=== PATIENT | female | born 1930 | race Caucasian/White ===

== ENCOUNTER 2016-09-19 21:41 | Observation (INO) | payer MEDICARE, OTHER ==
[~2016-09-19] VITALS: Ht 162.6 cm; Wt 61.0 kg
[2016-09-19 21:42] VITALS: BP 205/106; PULSE 92; RESP 14; TEMP 97.8; O2SAT 97
[2016-09-19] MEDS ORDERED: TETANUS/DIPHTHERIA TOXOID ADULT 0.5 ML VIAL IM ONE (23:15)
[2016-09-19] MEDS ORDERED: COUM5TAB PO (23:21)
--- NOTE | 2016-09-19 23:29 | PD ---
HPI Chief Complaint: Fall Time Seen by Provider: 23:03 Travel History International Travel<30 days: No Contact w/Intl Traveler<30days: No Traveled to known affect area: No History of Present Illness HPI The patient is a 85-year-old female who presents to the emergency department after a fall. The patient states she was leaving a concert [place] earlier tonight when her missed a step and tripped and fell. The patient states that her fell on top of her and she subsequently struck her head. The patient denies any loss of consciousness but does complain of a hematoma over the right forehead. The patient is currently on Coumadin secondary to atrial fibrillation. The patient also complains of a small bruise over the anterior aspect the left knee, but is able to bear weight on the affected leg. She also complains of pain over the right great toe and thinks her right great toe may be fractured. The patient denies any neck pain, chest pain, shortness breath, but does note mild nausea. She denies any vomiting or abdominal pain. PFSH Past Medical History Hx Anticoagulant Therapy: Yes (COUMADIN) Atrial Fibrillation: Yes Cardiovascular Problems: Yes (A FIB) Tetanus Vaccination: Unknown Influenza Vaccination: Yes Past Surgical History Appendectomy: Yes Hysterectomy: Yes Social History Alcohol Use: Yes Tobacco Use: No Substance Use: No Allergies-Medications (Allergen,Severity, Reaction): Coded Allergies: No Known Allergies (Unverified , 09/19/16) Reported Meds & Prescriptions Reported Meds & Active Scripts Active Reported Coumadin (Warfarin) 5 Mg Tab 5 Mg PO DAILY Review of Systems Except as stated in HPI: all other systems reviewed are Neg Eyes: No: Blurred Vision HENT: Positive: Headaches, No: Neck Pain Cardiovascular: Positive: Irregular Rhythm, No: Chest Pain or Discomfort Respiratory: No: Shortness of Breath Gastrointestinal: Positive: Nausea, No: Vomiting, Abdominal Pain Musculoskeletal: Positive: Pain Neurologic: Positive: Headache, No: Dizziness, Change in Mentation, Slurred Speech, Paresthesia, Sensory Disturbance Physical Exam Narrative GENERAL: Awake, alert, pleasant 85-year-old female who appears her stated age and is in no acute respiratory distress. SKIN: Focused skin assessment warm/dry. Hematoma to the right frontal parietal area with superficial abrasion noted. HEAD: Hematoma the right frontal temporal parietal area with abrasion noted. EYES: Pupils equal and round. Pupils are 3 mm bilateral and reactive. ENT: No nasal bleeding or discharge. Mucous membranes pink and moist. NECK: Trachea midline. No JVD. CARDIOVASCULAR: Irregularly irregular. RESPIRATORY: No accessory muscle use. Clear to auscultation. Breath sounds equal bilaterally. GASTROINTESTINAL: Abdomen soft, non-tender, nondistended. No rebound tenderness. MUSCULOSKELETAL: No obvious deformities. No clubbing. No cyanosis. No edema. NEUROLOGICAL: Awake and alert. No obvious cranial nerve deficits. Motor grossly within normal limits. Normal speech. Nonfocal. Oriented 4. Follows commands without difficulty. PSYCHIATRIC: Appropriate mood and affect; insight and judgment normal. Data Data Last Documented VS Vital Signs Date Time Temp Pulse Resp B/P Pulse Ox O2 Delivery O2 Flow Rate FiO2 09/19/16 21:42 97.8 92 14 205/106 97 Room Air Orders Tetanus/Diphtheria Tox Adult (Tetanus/Di (09/19/16 23:15) Ct Brain W/O Iv Contrast(Rout) (09/19/16 ) Toe (Min 2vws) (09/19/16 ) Prothrombin Time / Inr (Pt) (09/19/16 23:03) Complete Blood Count With Diff (09/19/16 23:03) Ondansetron Odt (Zofran Odt) (09/19/16 23:30) Labs Laboratory Tests Test 09/19/16 23:35 White Blood Count 8.2 TH/MM3 Red Blood Count 4.05 MIL/MM3 Hemoglobin 13.1 GM/DL Hematocrit 39.7 % Mean Corpuscular Volume 98.0 FL Mean Corpuscular Hemoglobin 32.4 PG Mean Corpuscular Hemoglobin 33.1 % Concent Red Cell Distribution Width 15.4 % Platelet Count 177 TH/MM3 Mean Platelet Volume 9.3 FL Neutrophils (%) (Auto) 72.8 % Lymphocytes (%) (Auto) 17.9 % Monocytes (%) (Auto) 7.4 % Eosinophils (%) (Auto) 1.2 % Basophils (%) (Auto) 0.7 % Neutrophils # (Auto) 6.0 TH/MM3 Lymphocytes # (Auto) 1.5 TH/MM3 Monocytes # (Auto) 0.6 TH/MM3 Eosinophils # (Auto) 0.1 TH/MM3 Basophils # (Auto) 0.1 TH/MM3 CBC Comment DIFF FINAL Differential Comment Prothrombin Time 22.1 SEC Prothromb Time International 1.9 RATIO Ratio MDM Medical Decision Making Medical Screen Exam Complete: Yes Emergency Medical Condition: Yes Medical Record Reviewed: Yes Interpretation(s) Laboratory Tests Test 09/19/16 23:35 White Blood Count 8.2 TH/MM3 Red Blood Count 4.05 MIL/MM3 Hemoglobin 13.1 GM/DL Hematocrit 39.7 % Mean Corpuscular Volume 98.0 FL Mean Corpuscular Hemoglobin 32.4 PG Mean Corpuscular Hemoglobin 33.1 % Concent Red Cell Distribution Width 15.4 % Platelet Count 177 TH/MM3 Mean Platelet Volume 9.3 FL Neutrophils (%) (Auto) 72.8 % Lymphocytes (%) (Auto) 17.9 % Monocytes (%) (Auto) 7.4 % Eosinophils (%) (Auto) 1.2 % Basophils (%) (Auto) 0.7 % Neutrophils # (Auto) 6.0 TH/MM3 Lymphocytes # (Auto) 1.5 TH/MM3 Monocytes # (Auto) 0.6 TH/MM3 Eosinophils # (Auto) 0.1 TH/MM3 Basophils # (Auto) 0.1 TH/MM3 CBC Comment DIFF FINAL Differential Comment Prothrombin Time 22.1 SEC Prothromb Time International 1.9 RATIO Ratio Differential Diagnosis Differential diagnosis includes closed head injury, intracranial hemorrhage, subdural hemorrhage, coagulopathy, fracture, hematoma, contusion. Narrative Course CT of the brain was ordered. X-ray the right great toe was obtained. PTT/INR and CBC were sent to lab. The patient was administered Zofran 4 mg ODT. INR is 1.9. CBC reveals normal hemoglobin and platelets. CT the brain reveals no acute hemorrhage. Small frontal lobe meningioma, patient was advised of the CT findings. X-ray of the toe reveals what appears to be a small avulsion fracture of the proximal phalanx. The patient was placed in a postop shoe. The patient will be provided a copy of her CT results and lab results at discharge. She is advised to follow-up with her primary physician and return if symptoms worsen or progress. She is also advised elevate the right foot, Tylenol as needed for pain, and ice the affected area. Diagnosis Primary Impression: Cephalohematoma Additional Impression: Fracture of right great toe Qualified Code: S92.414A - Closed nondisplaced fracture of proximal phalanx of right great toe, initial encounter Patient Instructions: General Instructions Additional Instructions: Please provide the patient a copy of her x-ray results, lab results, and CT results at discharge. Postop shoe. Tylenol as needed for pain. Elevate and ice to affected foot. Disposition: 01 DISCHARGE HOME Condition: Stable Yomi Landin MD Sep 19, 2016 23:29
[2016-09-19] MEDS ORDERED: ONDANSETRON ODT 4 MG TAB PO ONE (23:30)
--- NOTE | 2016-09-19 23:44 | RADRPT ---
EXAM DATE/TIME: 09/19/2016 23:17 [facility] COMPARISON: No previous studies available for comparison. INDICATIONS : Fall, right frontal pain. RADIATION DOSE: 56.35 CTDIvol (mGy) MEDICAL HISTORY : Cardiovascular disease. SURGICAL HISTORY : Hysterectomy. ENCOUNTER: Initial ACUITY: 1 day PAIN SCALE: 7/10 LOCATION: cranial TECHNIQUE: Multiple contiguous axial images were obtained of the head. Using automated exposure control and adj ustment of the mA and/or kV according to patient size, radiation dose was kept as low as reasonably a chievable to obtain optimal diagnostic quality images. FINDINGS: CEREBRUM: A 1 cm partially calcified dural based nodule involving the right frontal lobe. No mass effect. The v entricles are normal for age. No evidence of midline shift, mass lesion, hemorrhage or acute infarct ion. No extra-axial fluid collections are seen. POSTERIOR FOSSA: The cerebellum and brainstem are intact. The 4th ventricle is midline. The cerebellopontine angle i s unremarkable. EXTRACRANIAL: The visualized portion of the orbits is intact. A right frontal soft tissue hematoma observed. SKULL: The calvaria is intact. No evidence of skull fracture. CONCLUSION: 1. No acute intracranial abnormality. 2. Right frontal soft tissue hematoma. 3. Small meningioma overlying the right frontal lobe. Harshad Hughes Jr., MD on September 19, 2016 at 23:41 Board Certified Radiologist. This report was verified electronically.
[2016-09-19 23:46] LABS: BASOPHIL # 0.1 TH/MM3 (0-0.2); BASOPHIL % 0.7 % (0.0-2.0); EOSINOPHIL # 0.1 TH/MM3 (0-0.4); EOSINOPHIL % 1.2 % (0.0-4.0); HEMATOCRIT 39.7 % (35.0-46.0); HEMO FLAGS DIFF FINAL; LYMPH % 17.9 % (9.0-44.0); LYMPHOCYTE # 1.5 TH/MM3 (1.0-4.8); MEAN CORPUSCULAR HEMOGLOBIN 32.4 PG (27.0-34.0); MEAN CORPUSCULAR HGB CONC 33.1 % (32.0-36.0); MONO % 7.4 % (0.0-8.0); NEUT % 72.8 % (16.0-70.0); PLATELET COUNT 177 TH/MM3 (150-450); RED BLOOD COUNT 4.05 MIL/MM3 (4.00-5.30); RED CELL DISTRIBUTION WIDTH 15.4 % (11.6-17.2); WHITE BLOOD COUNT 8.2 TH/MM3 (4.0-11.0)
[2016-09-20] VITALS (7 sets, daily range): BP systolic 115–189; BP diastolic 68–99; PULSE 63–95; RESP 16–19; TEMP 97.7–98.1; O2SAT 91–98
[2016-09-20 00:01] LABS: INTERNATIONAL NORMALIZED RATIO 1.9 RATIO; PROTHROMBIN TIME - PATIENT 22.1 SEC (9.8-11.6)
[2016-09-20] MEDS ORDERED: ONDANSETRON ODT 4 MG TAB PO ONE (01:00)
[2016-09-20] MEDS ORDERED: ACETAMINOPHEN 325 MG TAB PO PRN (01:45)
[2016-09-20] MEDS ORDERED: ONDANSETRON HCL 4 MG/2 ML VIAL IV PUSH PRN (01:45)
--- NOTE | 2016-09-20 02:02 | PD ---
Data Data Last Documented VS Vital Signs Date Time Temp Pulse Resp B/P Pulse Ox O2 Delivery O2 Flow Rate FiO2 09/19/16 21:42 97.8 92 14 205/106 97 Room Air Orders Tetanus/Diphtheria Tox Adult (Tetanus/Di (09/19/16 23:15) Ct Brain W/O Iv Contrast(Rout) (09/19/16 ) Toe (Min 2vws) (09/19/16 ) Prothrombin Time / Inr (Pt) (09/19/16 23:03) Complete Blood Count With Diff (09/19/16 23:03) Ondansetron Odt (Zofran Odt) (09/19/16 23:30) Post Op Boot (Shoe) (09/20/16 ) Ondansetron Odt (Zofran Odt) (09/20/16 01:00) Diet Heart Healthy (09/20/16 Breakfast) Vital Signs (Adult) MAYTE.Q4H (09/20/16 01:45) Neuro Checks . ORDERED (09/20/16 01:45) Hemoglobin (Hgb) (09/20/16 06:00) Hematocrit (Hct) (09/20/16 06:00) Prothrombin Time / Inr (Pt) (09/20/16 06:00) Ondansetron Inj (Zofran Inj) (09/20/16 01:45) Acetaminophen (Tylenol) (09/20/16 01:45) Basic Metabolic Panel (Bmp) (09/20/16 06:00) Shoe Cast (09/20/16 ) Admit Order (Ed Use Only) (09/20/16 ) Labs Laboratory Tests Test 09/19/16 23:35 White Blood Count 8.2 TH/MM3 Red Blood Count 4.05 MIL/MM3 Hemoglobin 13.1 GM/DL Hematocrit 39.7 % Mean Corpuscular Volume 98.0 FL Mean Corpuscular Hemoglobin 32.4 PG Mean Corpuscular Hemoglobin 33.1 % Concent Red Cell Distribution Width 15.4 % Platelet Count 177 TH/MM3 Mean Platelet Volume 9.3 FL Neutrophils (%) (Auto) 72.8 % Lymphocytes (%) (Auto) 17.9 % Monocytes (%) (Auto) 7.4 % Eosinophils (%) (Auto) 1.2 % Basophils (%) (Auto) 0.7 % Neutrophils # (Auto) 6.0 TH/MM3 Lymphocytes # (Auto) 1.5 TH/MM3 Monocytes # (Auto) 0.6 TH/MM3 Eosinophils # (Auto) 0.1 TH/MM3 Basophils # (Auto) 0.1 TH/MM3 CBC Comment DIFF FINAL Differential Comment Prothrombin Time 22.1 SEC Prothromb Time International 1.9 RATIO Ratio MDM Supervised Visit with [facility]: No Narrative Course Patient care assumed from Dr. Landin at . Per Dr. Landin the patient had a fairly traumatic fall impacting her head on a park bench. She does have a right parietal hematoma on the scalp. CT head was negative basic labs negative. Patient was feeling nauseous and given some antiemetics. Was called to the bed by nursing as the patient is still feeling very nauseated especially when she goes from sitting to standing. Discussed with the patient and the family that there is likely a considerable concussion here. On my exam the patient is neurologically nonfocal cranial nerves are all intact. Discussed she needs to consider observation status and she would like to do this. Patient was discussed with Dr. Wiseman for admission who agrees. Diagnosis Primary Impression: Cephalohematoma Additional Impression: Fracture of right great toe Qualified Code: S92.414A - Closed nondisplaced fracture of proximal phalanx of right great toe, initial encounter Patient Instructions: General Instructions Departure Forms: Tests/Procedures Additional Instruction: Please provide the patient a copy of her x-ray results, lab results, and CT results at discharge. Postop shoe. Tylenol as needed for pain. Elevate and ice to affected foot. Disposition: 01 DISCHARGE HOME Condition: Stable Pineda Chavarria MD Sep 20, 2016 02:02
[2016-09-20] MEDS ORDERED: ENALAPRILAT 1.25 MG/ML VIAL IV PUSH PRN (03:00)
[2016-09-20] MEDS ORDERED: HYDROmorphone HCL PF 1 MG/ML VIAL IV PRN (03:15)
--- NOTE | 2016-09-20 03:41 | HHI.HP ---
[facility] Service [facility] Primary Care Physician Diego Graff M.D. Admission Diagnosis Concussion/Closed head injury Diagnoses: (1) Cephalohematoma Diagnosis: Principal Chief Complaint: fall Travel History International Travel<30 Days: No Contact w/Intl Traveler <30 Da: No Traveled to Known Affected Are: No History of Present Illness patient is a 85 y/o female with history of atrial fibrillation, on coumadin, was brought to ER after she fell earlier. she says that she was walking down the stairs in front of her . he tripped and fell and pushed her down. her head hit the floor. she developed a frontal hematoma . she denies loss of consciousness. she's complaining of pain to the right great toe. otherwise she denies any abdominal pain, chest pain. she 's complaining of some nausea and headache. Review of Systems Constitutional: DENIES: Fever, Weight loss, Chills, Night Sweats Eyes: DENIES: Blurred vision, Diplopia, Vision loss, Double Vision Ears, nose, mouth, throat: DENIES: Tinnitus, Vertigo, Throat pain, Epistaxis Respiratory: DENIES: Apneas, Cough, Snoring, Wheezing, Hemoptysis, Sputum production, Shortness of breath Cardiovascular: DENIES: Chest pain, Palpitations, Syncope, Dyspnea on Exertion , PND, Lower Extremity Edema, Orthopnea, Claudication Gastrointestinal: DENIES: Abdominal pain, Black stools, Bloody stools, Constipation, Diarrhea, Nausea, Vomiting, Difficulty Swallowing, Anorexia Genitourinary: DENIES: Urinary frequency, Urgency, Hematuria, Dysuria Musculoskeletal: COMPLAINS OF: Joint pain (right great toe), DENIES: Muscle aches, Stiffness, Joint Swelling Integumentary: DENIES: Rash Neurologic: COMPLAINS OF: Headache, DENIES: Abnormal gait, Localized weakness , Paresthesias, Seizures, Speech Problems, Tremor, Poor Balance Psychiatric: DENIES: Anxiety, Confusion, Mood changes, Depression, Hallucinations, Agitation, Suicidal Ideation, Homicidal Ideation, Delusions Past Family Social History Past Medical History a-fib Past Surgical History hysterectomy appendectomy Reported Medications coumadin Allergies: Coded Allergies: No Known Allergies (Unverified , 09/19/16) Active Ordered Medications Current Medications Tetanus/ Diphtheria Toxoids (Tetanus/ Diphtheria Tox Adult) 0.5 ml ONCE ONCE IM ; Start 09/19/16 at 23:15; Stop 09/19/16 at 23:22; Status DC Ondansetron HCl (Zofran Odt) 4 mg ONCE ONCE PO Last administered on 09/19/16 23:45; Start 09/19/16 at 23:30; Stop 09/19/16 at 23:31; Status DC Ondansetron HCl (Zofran Odt) 4 mg ONCE ONCE PO Last administered on 09/20/16 01:02; Start 09/20/16 at 01:00; Stop 09/20/16 at 01:01; Status DC Ondansetron HCl (Zofran Inj) 4 mg Q8HR PRN IV PUSH NAUSEA Last administered on 09/20/16 02:31; Start 09/20/16 at 01:45 Acetaminophen (Tylenol) 650 mg Q4H PRN PO FEVER/PAIN; Start 09/20/16 at 01:45; Stop 09/20/16 at 03:08; Status DC Enalaprilat (Vasotec Inj) 1.25 mg Q8H PRN IV PUSH SBP>180, DBP>100; Start 09/20 at 03:00 Acetaminophen (Tylenol) 650 mg Q4H PRN PO PAIN SCALE 1-4 / FEVER; Start at 03:15 Hydromorphone HCl (Dilaudid Pf Inj) 0.2 mg Q4H PRN IV PAIN SCALE 5-10 Last administered on 09/20/16 03:22; Start 09/20/16 at 03:15 Social History no smoking or drinking. Physical Exam Vital Signs Vital Signs Date Time Temp Pulse Resp B/P Pulse Ox O2 Delivery O2 Flow Rate FiO2 09/20/16 03:24 95 16 155/88 95 Room Air 09/20/16 02:20 65 16 189/99 96 Room Air 09/19/16 21:42 97.8 92 14 205/106 97 Room Air Physical Exam GENERAL: This is a well-nourished, well-developed patient, in no apparent distress. SKIN: No rashes, ecchymoses or lesions. Cool and dry. HEAD:laceration/ hematoma noted on the right frontal. EYES: Pupils equal round and reactive. Extraocular motions intact. No scleral icterus. No injection or drainage. ENT: Nose without bleeding, purulent drainage or septal hematoma. Throat without erythema, tonsillar hypertrophy or exudate. Uvula midline. Airway patent. NECK: Trachea midline. No JVD or lymphadenopathy. Supple, nontender, no meningeal signs. CARDIOVASCULAR: Regular rate and rhythm without murmurs, gallops, or rubs. RESPIRATORY: Clear to auscultation. Breath sounds equal bilaterally. No wheezes , rales, or rhonchi. GASTROINTESTINAL: Abdomen soft, non-tender, nondistended. No hepato-splenomegaly , or palpable masses. No guarding. MUSCULOSKELETAL:tenderness/ swelling of the right great toe NEUROLOGICAL: Awake and alert. Cranial nerves II through XII intact. Motor and sensory grossly within normal limits. Five out of 5 muscle strength in all muscle groups. Normal speech. Laboratory Laboratory Tests Test 09/19/16 23:35 White Blood Count 8.2 Red Blood Count 4.05 Hemoglobin 13.1 Hematocrit 39.7 Mean Corpuscular Volume 98.0 Mean Corpuscular Hemoglobin 32.4 Mean Corpuscular Hemoglobin 33.1 Concent Red Cell Distribution Width 15.4 Platelet Count 177 Mean Platelet Volume 9.3 Neutrophils (%) (Auto) 72.8 Lymphocytes (%) (Auto) 17.9 Monocytes (%) (Auto) 7.4 Eosinophils (%) (Auto) 1.2 Basophils (%) (Auto) 0.7 Neutrophils # (Auto) 6.0 Lymphocytes # (Auto) 1.5 Monocytes # (Auto) 0.6 Eosinophils # (Auto) 0.1 Basophils # (Auto) 0.1 CBC Comment DIFF FINAL Differential Comment Prothrombin Time 22.1 Prothromb Time International 1.9 Ratio Result Diagram: 09/19/16 2335 Imaging Last Impressions Head CT 09/19/16 0000 Signed Impressions: Service Date/Time: Monday, September 19, 2016 23:17 - CONCLUSION: 1. No acute intracranial abnormality. 2. Right frontal soft tissue hematoma. 3. Small meningioma overlying the right frontal lobe. Harshad Hughes Jr., MD Assessment and Plan Assessment and Plan A/P - fall with: right frontal soft tissue hematoma pain/ swelling to the right great toe continue with pain [id number]- follow the XR of the right great toe -a-fib on coumadin; hold coumadin for now- -elevated BP's - likely due to pain-vasotec as needed- will monitor the BP -right frontal lobe small meningioma; f/u as outpatient -DVT prophylaxis with SCD's Discussed Condition With ER physician, the patient and the RN. Edgar Wiseman MD Sep 20, 2016 03:41
[2016-09-20] MEDS ORDERED: ACETAMINOPHEN/HYDROcodone 325 MG/5 MG TAB PO PRN (03:45)
[2016-09-20 05:48] LABS: HEMATOCRIT 36.9 % (35.0-46.0)
[2016-09-20 05:51] LABS: INTERNATIONAL NORMALIZED RATIO 1.8 RATIO; PROTHROMBIN TIME - PATIENT 20.1 SEC (9.8-11.6)
[2016-09-20 06:11] LABS: BICARBONATE 24.9 MEQ/L (21.0-32.0); POTASSIUM 4.3 MEQ/L (3.5-5.1)
--- NOTE | 2016-09-20 07:00 | RADRPT ---
EXAM DATE/TIME: 09/19/2016 23:19 [facility] COMPARISON: No previous studies available for comparison. INDICATIONS : Right toe pain. MEDICAL HISTORY : None. SURGICAL HISTORY : None. ENCOUNTER: Initial ACUITY: 1 day PAIN SCORE: 5/10 LOCATION: Right foot FINDINGS: 2 views of the right foot reveal a linear lucency involving the medial base of the proximal phalanx o f the great toe. There may be some cortication involving a portion of this. The remaining bony struct ures are unremarkable. Soft tissues are unremarkable. Mild spurring of the calcaneus. CONCLUSION: Questionable acute versus chronic fracture involving the base of the proximal phalanx of the great to eGuevara Hughes Jr., MD on September 20, 2016 at 0:01 Board Certified Radiologist. This report was verified electronically.
[2016-09-20] MEDS ORDERED: HYDR-3516 PO (09:40)
[2016-09-20] MEDS: ACETAMINOPHEN 325 MG TAB PO PRN (11:53)
--- NOTE | 2016-09-20 14:42 | HHI.PR ---
Subjective Remarks Follow-up for frontal hematoma along with headache. Patient stated headache has improved. Denying nausea or vomiting or visual changes. Patient feels like she's doing a lot better. She has no other complaints. Patient is AAO 3 and she is able to have an appropriate conversation. Objective Vitals Vital Signs Date Time Temp Pulse Resp B/P Pulse Ox O2 Delivery O2 Flow Rate FiO2 09/20/16 14:25 97.7 69 18 115/81 95 09/20/16 09:30 65 16 137/72 98 Room Air 09/20/16 07:30 73 19 128/69 98 Room Air 09/20/16 06:13 78 16 145/78 91 Room Air 09/20/16 03:24 95 16 155/88 95 Room Air 09/20/16 02:20 65 16 189/99 96 Room Air 09/19/16 21:42 97.8 92 14 205/106 97 Room Air I/O 09/19/16 09/19/16 09/19/16 09/20/16 09/20/16 09/20/16 07:00 15:00 23:00 07:00 15:00 23:00 Intake Total 150 ml Balance 150 ml Intake Oral 150 ml # Voids 1 Result Diagram: 09/20/16 0450 09/20/16 0450 Imaging Last Impressions Toe X-Ray 09/19/16 0000 Signed Impressions: Service Date/Time: Monday, September 19, 2016 23:19 - CONCLUSION: Questionable acute versus chronic fracture involving the base of the proximal phalanx of the great toe. Harshad Hughes Jr., MD Head CT 09/19/16 0000 Signed Impressions: Service Date/Time: Monday, September 19, 2016 23:17 - CONCLUSION: 1. No acute intracranial abnormality. 2. Right frontal soft tissue hematoma. 3. Small meningioma overlying the right frontal lobe. Harshad Hughes Jr., MD Objective Remarks GENERAL: in nad SKIN: Warm and dry. HEAD: Frontal hematoma on the scalp measuring about presented diameter. Per patient this has been stable. Ecchymosis in the right frontal area. No tenderness to palpation. EYES: No scleral icterus. No injection or drainage. NECK: Supple, trachea midline. No JVD or lymphadenopathy. CARDIOVASCULAR: Regular rate and rhythm without murmurs, gallops, or rubs. RESPIRATORY: Breath sounds equal bilaterally. No accessory muscle use. GASTROINTESTINAL: Abdomen soft, non-tender, nondistended. Neuro: AAO 3. Cranial nerves II-12 intact. Sensation is intact. 5 out of 5 upper and lower ext strength. Coordination is intact. Extremity: Swelling in the right great toe. Medications and IVs Current Medications Tetanus/ Diphtheria Toxoids (Tetanus/ Diphtheria Tox Adult) 0.5 ml ONCE ONCE IM ; Start 09/19/16 at 23:15; Stop 09/19/16 at 23:22; Status DC Ondansetron HCl (Zofran Odt) 4 mg ONCE ONCE PO Last administered on 09/19/16 23:45; Start 09/19/16 at 23:30; Stop 09/19/16 at 23:31; Status DC Ondansetron HCl (Zofran Odt) 4 mg ONCE ONCE PO Last administered on 09/20/16 01:02; Start 09/20/16 at 01:00; Stop 09/20/16 at 01:01; Status DC Ondansetron HCl (Zofran Inj) 4 mg Q8HR PRN IV PUSH NAUSEA Last administered on 09/20/16 02:31; Start 09/20/16 at 01:45 Acetaminophen (Tylenol) 650 mg Q4H PRN PO FEVER/PAIN; Start 09/20/16 at 01:45; Stop 09/20/16 at 03:08; Status DC Enalaprilat (Vasotec Inj) 1.25 mg Q8H PRN IV PUSH SBP>180, DBP>100; Start 09/20 at 03:00 Acetaminophen (Tylenol) 650 mg Q4H PRN PO PAIN SCALE 1-5 / FEVER Last administered on 09/20/16 11:53; Start 09/20/16 at 03:15 Hydromorphone HCl (Dilaudid Pf Inj) 0.2 mg Q4H PRN IV BREAKTHROUGH PAIN Last administered on 09/20/16 03:22; Start 09/20/16 at 03:15 Acetaminophen/ Hydrocodone Bitart ([place] 5-325 Mg) 1 tab Q4H PRN PO PAIN > 5; Start 09/20/16 at 03:45 A/P Problem List: (1) Cephalohematoma ICD Code: P12.0 Status: Acute Assessment and Plan Mechanical fall with -CT scan done which resulted in a right frontal soft tissue hematoma. Right great toe swelling -Chronic versus acute fracture. -Recommend surgical shoe. -Follow up with loom fixer as outpatient. -Continue pain control as needed. a-fib on coumadin; -Coumadin was held. Hematoma looks stable. Hemoglobin has been stable. -Will consult neurosurgeon in regards to when her anticoagulation can be restarted. -most likely will need repeat CT scan of head pending NSG consult. Uncontrolled blood pressure -Resolved. Most likely secondary to pain. right frontal lobe small meningioma -f/u as outpatient -DVT prophylaxis with SCD's Amanda Vargas MD Sep 20, 2016 14:42
[2016-09-21 00:23] VITALS: BP 115/65; PULSE 61; RESP 18; TEMP 98; O2SAT 95
[2016-09-21 03:42] VITALS: BP 118/64; PULSE 63; RESP 18; TEMP 98.1; O2SAT 95
[2016-09-21 07:45] LABS: HEMATOCRIT 36.8 % (35.0-46.0); MEAN CELL VOLUME 97.6 FL (80.0-100.0); MEAN CORPUSCULAR HEMOGLOBIN 33.2 PG (27.0-34.0); PLATELET COUNT 172 TH/MM3 (150-450); RED BLOOD COUNT 3.77 MIL/MM3 (4.00-5.30); RED CELL DISTRIBUTION WIDTH 15.3 % (11.6-17.2); REVIEW FLAG FINAL; WHITE BLOOD COUNT 5.9 TH/MM3 (4.0-11.0)
[2016-09-21 08:00] VITALS: BP 134/76; PULSE 62; RESP 18; TEMP 98.7; O2SAT 95
[2016-09-21 08:15] LABS: POTASSIUM 4.2 MEQ/L (3.5-5.1)
[2016-09-21] MEDS: ACETAMINOPHEN 325 MG TAB PO PRN (08:22)
--- NOTE | 2016-09-21 09:36 | RADRPT ---
EXAM DATE/TIME: 09/21/2016 08:50 [facility] COMPARISON: CT BRAIN W/O CONTRAST, September 19, 2016, 23:17. INDICATIONS : Follow up of closed head injury. RADIATION DOSE: 37.66 CTDIvol (mGy) MEDICAL HISTORY : Cardiovascular disease. SURGICAL HISTORY : Appendectomy. Hysterectomy. ENCOUNTER: Subsequent ACUITY: 2 days PAIN SCALE: 2/10 LOCATION: Right frontal TECHNIQUE: Multiple contiguous axial images were obtained of the head. Using automated exposure control and adj ustment of the mA and/or kV according to patient size, radiation dose was kept as low as reasonably a chievable to obtain optimal diagnostic quality images. FINDINGS: CEREBRUM: The ventricles are normal for age. No evidence of midline shift, mass lesion, hemorrhage or acute in farction. The examination demonstrates a 0.9 x 0.8 cm calcified extra-axial mass along the right fron luisito cortex. This is stable compared to previous dated 09/19/16. No acute intracranial hemorrhage is pr esent. POSTERIOR FOSSA: The cerebellum and brainstem are intact. The 4th ventricle is midline. The cerebellopontine angle i s unremarkable. EXTRACRANIAL: The visualized portion of the orbits is intact. SKULL: The calvaria is intact. No evidence of skull fracture. There is soft tissue swelling and hematoma wi thin the scalp. CONCLUSION: 1. Stable meningioma along the right frontal cortex measuring approximate 9 mm. 2. No acute cranial hemorrhage. 3. Swelling and hematoma within the scalp. Sushil Miller MD on September 21, 2016 at 9:33 Board Certified Radiologist. This report was verified electronically.
--- NOTE | 2016-09-21 09:47 | MB ---
cc: ARNULFO SULLIVAN M.D., ROHIT K. M.D. DATE OF CONSULTATION: 09/20/2016 REASON FOR CONSULTATION: Clearance for coumadin, status post fall. HISTORY OF PRESENT ILLNESS: A 85-year-old female who was then a concert with her when she tripped and fell and hit the wooden seat on the right side of the head with negative loss of consciousness. She presented to the emergency room late last evening with complaints of right sided headache and right toe pain. Denies any neck pain or back pain. No associated nausea or vomiting. Workup included CT scan of the head which does not reveal any acute intracranial abnormality. There is a small 1 cm right dural-based the frontal lobe calcified mass consistent with a meningioma. There is some right subgaleal hematoma. Right toe. X-rays. Questionable for acute versus chronic fracture of the proximal phalanx of the great toe. Neurosurgery has been consulted regarding rending an opinion when her Coumadin can be resumed. PAST MEDICAL HISTORY Atrial fibrillation on chronic Coumadin therapy. Hysterectomy Appendectomy MEDICATIONS: Coumadin 5 mg daily Lortab 5/325 mg q 4 h p.r.n. ALLERGIES NO KNOWN DRUG ALLERGIES. SOCIAL HISTORY She is and is a former smoker, on occasional basis. REVIEW OF SYSTEMS Pertinent positives include right-sided headache and right toe pain. No neck pain or back pain and otherwise negative. LABORATORY FINDINGS White blood cell count 8.2, hemoglobin 13.1, platelet count and 177, PT 820.1, INR 1.8, sodium 138, potassium 4.3, BUN 10, creatinine 0.65, glucose 136. PHYSICAL EXAMINATION VITAL SIGNS: 97.7, pulse 69, respiratory 80, blood pressure 115/81, oxygen saturations 95% on room air. HEAD, EYES, EARS, NOSE, AND THROAT: She has right forehead ecchymosis and swelling on the right periorbital ecchymosis. NECK: Neck is supple with no guarding or rigidity with movement. CHEST: Clear bilaterally. HEART: Regular rhythm, normal S1, S2. ABDOMEN: Soft, nontender. EXTREMITIES: She has some cyanosis and edema in the right big toe. No other deformities. NEUROLOGIC: She is awake, alert. Pupils equal, reactive. Extra muscles intact. Face symmetric tongue is midline. Motor strength is 5/5 in the upper or lower extremities. Normal sensation, symmetric reflexes. Negative Babinski. Speech is fluent. IMPRESSION 1. Small right frontal calcified mass likely an incidental finding and consistent with a meningioma. There is no intracranial hemorrhage noted. 2. Atrial fibrillation on chronic Coumadin therapy. 3. Possible fracture of the right big toe proximal phalanx. PLAN The patient does not require any neurosurgical intervention and is cleared to resume her anticoagulation. She expressed some concern about getting a followup scan to ensure no delayed healing and no delayed bleeding and I requested followup scan for tomorrow morning and at this is stable then she can likely be discharged and resume her home medications and anticoagulation. MD SERENITY Hernandez/dalila /6:26 PM /9:24 AM
--- NOTE | 2016-09-21 11:26 | HHI.DCPOC ---
Discharge Care Plan Diagnosis: (1) Fracture of right great toe (2) Cephalohematoma Goals to Promote Your Health * To prevent worsening of your condition and complications * To maintain your health at the optimal level Directions to Meet Your Goals Take your medications as prescribed Follow your dietary instruction Follow activity as directed Keep your appointments as scheduled Take your immunizations and boosters as scheduled If your symptoms worsen call your PCP, if no PCP go to Urgent Care Center or Emergency Room Smoking is Dangerous to Your Health. Avoid second hand smoke Call the 24-hour hour crisis hotline for domestic abuse at Amanda Vargas MD Sep 21, 2016 11:26
[2016-09-21 12:00] VITALS: BP 112/69; PULSE 54; RESP 18; TEMP 97.9; O2SAT 94
--- NOTE | 2016-09-21 18:19 | HHI.DS ---
Discharge Summary Admission Date Sep 20, 2016 at 02:03 Discharge Date: Sep 21, 2016 Admitting Diagnosis Concussion/Closed head injury (1) Cephalohematoma ICD Code: P12.0 Diagnosis: Principal (2) Fracture of right great toe ICD Code: S92.401A Diagnosis: Principal Procedures none Brief History - From Admission patient is a 85 y/o female with history of atrial fibrillation, on coumadin, was brought to ER after she fell earlier. she says that she was walking down the stairs in front of her . he tripped and fell and pushed her down. her head hit the floor. she developed a frontal hematoma . she denies loss of consciousness. she's complaining of pain to the right great toe. otherwise she denies any abdominal pain, chest pain. she 's complaining of some nausea and headache. CBC/BMP: 09/21/16 0722 09/21/16 0722 Significant Findings Laboratory Tests Test 09/19/16 09/20/16 09/21/16 23:35 04:50 07:22 Neutrophils (%) (Auto) 72.8 % (16.0-70.0) Prothrombin Time 22.1 SEC 20.1 SEC (9.8-11.6) (9.8-11.6) Estimat Glomerular Filtration 87 ML/MIN (>89) 62 ML/MIN (>89) Rate Random Glucose 136 MG/DL (74-106) Red Blood Count 3.77 MIL/MM3 (4.00-5.30) Imaging Last Impressions Head CT 09/21/16 0600 Signed Impressions: Service Date/Time: Wednesday, September 21, 2016 08:50 - CONCLUSION: 1. Stable meningioma along the right frontal cortex measuring approximate 9 mm. 2. No acute cranial hemorrhage. 3. Swelling and hematoma within the scalp. Sushil Miller MD Toe X-Ray 09/19/16 0000 Signed Impressions: Service Date/Time: Monday, September 19, 2016 23:19 - CONCLUSION: Questionable acute versus chronic fracture involving the base of the proximal phalanx of the great toe. Harshad Hughes Jr., MD PE at Discharge GENERAL: in nad SKIN: Warm and dry. HEAD: Frontal hematoma on the scalp measuring about presented diameter. Per patient this has been stable. Ecchymosis in the right frontal area. No tenderness to palpation. EYES: No scleral icterus. No injection or drainage. NECK: Supple, trachea midline. No JVD or lymphadenopathy. CARDIOVASCULAR: Regular rate and rhythm without murmurs, gallops, or rubs. RESPIRATORY: Breath sounds equal bilaterally. No accessory muscle use. GASTROINTESTINAL: Abdomen soft, non-tender, nondistended. Neuro: AAO 3. Cranial nerves II-12 intact. Sensation is intact. 5 out of 5 upper and lower ext strength. Coordination is intact. Extremity: Swelling in the right great toe. Pt update on day of discharge f/u for head injury patient stated CURIEL resolved. denied any N/V. patient very anxious to go. Patient feels like she is back to baseline. Hospital Course Mechanical fall -CT scan done which resulted in a right frontal soft tissue hematoma. Right great toe swelling -Chronic versus acute fracture. -Recommend surgical shoe. -Follow up with m1 armor crewman as outpatient. -Continue pain control as needed. a-fib on coumadin; -Coumadin was held. Hematoma looks stable. Hemoglobin has been stable. neurosurgeon cleared to restart coumadin.. -repeat CT scan of head is stable. Uncontrolled blood pressure -Resolved. Most likely secondary to pain. right frontal lobe small meningioma -f/u as outpatient Pt Condition on Discharge: Good Discharge Disposition: Discharge Home Discharge Time: <= 30 minutes Discharge Instructions DIET: Follow Instructions for: Heart Healthy Diet, Coumadin (Warfarin) Diet Activities you can perform: Weight Bearing as [place] Other Activity Instructions: Keep boot on until cleared by Jammer Operator or your Primary Care Physician Follow up Referrals: PCP Follow-up - 1 Week Podiatry - 2 Weeks New Medications: Hydrocodone-Acetaminophen (Hydrocodone-Acetaminophen) 5-325 mg Tab 1 TAB PO Q4H PRN PAIN > 5 #15 Ref 0 TAB Continued Medications: Warfarin (Coumadin) 5 Mg Tab 5 MG PO DAILY Blood Clot Prevention #30 Ref 0 TAB Amanda Vargas MD Sep 21, 2016 18:18
== END 2016-09-21 14:21 | disposition home or self-care (01) ==
LOC: NEPD 21:41 → NEDA 09-20 02:03 → NEDH 09-20 07:34 → NEPHCDU 09-20 14:21
PROVIDERS: ADMIT Family Medicine; ATTEND Family Medicine
DX: S06.2X0A Diffuse traumatic brain injury without loss of consciousness, initial encounter (principal); S92.411A Displaced fracture of proximal phalanx of right great toe, initial encounter for closed fracture; I48.91 Unspecified atrial fibrillation; D32.9 Benign neoplasm of meninges, unspecified; Z79.01 Long term (current) use of anticoagulants; W01.0XXA Fall on same level from slipping, tripping and stumbling without subsequent striking against object, initial encounter; Z87.891 Personal history of nicotine dependence
CPT/HCPCS: 70450; 73660; 80048; 85014; 85018; 85025; 85027; 85610; 97162; 99285; G0378; G8987; G8988; J1170; J2405; L3260